=== PATIENT | male | born 1965 | race Caucasian/White ===

== ENCOUNTER 2021-08-24 16:41 | Inpatient (IN) | payer OTHER ==
[2021-08-24 18:53] VITALS: BMI 18.6
[2021-08-24] MEDS ORDERED: MAG HYDROX/AL HYDROX/SIMETH 30 ML UNIT-DOSE CUP PO PRN (21:59)
[2021-08-24] MEDS ORDERED: ONDANSETRON *ODT* 4 MG TABLET SL PRN (21:59)
[2021-08-24] MEDS ORDERED: LOPERAMIDE HCL 2 MG CAPSULE PO PRN (21:59)
[2021-08-24] MEDS ORDERED: MAGNESIUM HYDROX 2400MG/30ML ORAL SUSPENSION 30 ML CUP PO PRN (21:59)
[2021-08-24] MEDS ORDERED: BISMUTH SUBSALICYLATE 524 MG/30 ML PO PRN (21:59)
[2021-08-24] MEDS ORDERED: IBUPROFEN 400 MG TABLET (FP) PO PRN (21:59)
[2021-08-24] MEDS ORDERED: BENZOCAINE/MENTHOL (CHLORASEPTIC ) LOZENGE MM PRN (21:59)
[2021-08-24] MEDS ORDERED: MAGNESIUM CITRATE 300 ML BOTTLE PO PRN (21:59)
[2021-08-24] MEDS ORDERED: ACETAMINOPHEN 325 MG TABLET (FP) PO PRN ×2 (21:59)
[2021-08-24] MEDS ORDERED: DICYCLOMINE HCL 10 MG CAPSULE PO PRN (21:59)
[2021-08-24] MEDS ORDERED: diazePAM 5 MG TABLET PO PRN (22:01)
[2021-08-25] MEDS: diazePAM 5 MG TABLET PO SCH ×5 (02:30→22:55)
[2021-08-25] MEDS: THIAMINE HCL 100 MG TABLET (FP) PO SCH ×2 (02:31→22:55)
[2021-08-25] MEDS ORDERED: methaDONE HCL 10 MG TABLET ONE (09:32)
[2021-08-25] MEDS ORDERED: methaDONE HCL 40 MG DISPERSABLE TABLET ONE (09:33)
[2021-08-25] MEDS ORDERED: methaDONE HCL 10 MG TABLET PO ONE (10:00)
[2021-08-25] MEDS: PRENATAL VITAMINS W/ FOLIC ACID TABLET (FP) PO SCH (10:10)
[2021-08-25] MEDS: amLODIPine BESYLATE 10 MG TABLET (FP) PO SCH (10:11)
[2021-08-25] MEDS: LISINOPRIL 20 MG TABLET PO SCH (10:11)
[2021-08-25] MEDS: ABACAVIR/DOLUTEGRAVIR/LAMIVUDI (TRIUMEQ) TABLET -NF PO SCH (10:13)
[2021-08-25] MEDS: KETOCONAZOLE 2% CREAM - 60GM TUBE TP SCH (10:18)
[2021-08-25] MEDS: NICOTINE POLACRILEX 2 MG GUM BUC PRN (11:58)
[2021-08-25 12:16] LABS: HEMOGLOBIN 9.8 GM/dL (11.7-16.9); MCH 33.7 pg (25.7-33.7); MCHC 33.7 g/dl (32.0-35.9); MEAN CELL VOLUME 100.1 fl (80-96); MEAN PLT VOLUME 9.3 fl (7.5-11.1); PLATELET COUNT 153 10^3/uL (134-434); RDW 18.5 % (11.9-15.9); WHITE BLOOD COUNT 3.6 K/mm3 (4.0-10.0)
[2021-08-25 12:18] LABS: ALBUMIN 2.9 g/dl (3.4-5.0)
[2021-08-25 12:19] LABS: BLOOD UREA NITROGEN 15.6 mg/dL (7-18); CALCIUM 8.5 mg/dL (8.5-10.1)
[2021-08-25 12:22] LABS: CREATININE 1.2 mg/dL (0.55-1.3)
[2021-08-25 12:23] LABS: BILIRUBIN,TOTAL 0.3 mg/dL (0.2-1); TOT PROT 6.4 g/dl (6.4-8.2)
[2021-08-25] MEDS: diazePAM 5 MG TABLET PO ONE (18:02)
[2021-08-25] MEDS: hydrOXYzine PAMOATE 25 MG CAPSULE (FP) PO PRN ×2 (18:02→22:55)
[2021-08-25] MEDS: MELATONIN 5 MG TABLETS PO PRN (22:54)
[2021-08-26] MEDS ORDERED: methaDONE HCL 10 MG TABLET ONE (04:28)
[2021-08-26] MEDS ORDERED: methaDONE HCL 40 MG DISPERSABLE TABLET ONE (04:29)
[2021-08-26] MEDS: diazePAM 5 MG TABLET PO SCH ×3 (05:37→22:11)
[2021-08-26] MEDS ORDERED: methaDONE HCL 10 MG TABLET PO SCH (06:00)
[2021-08-26] MEDS: NICOTINE POLACRILEX 2 MG GUM BUC PRN (06:28)
[2021-08-26] MEDS: PRENATAL VITAMINS W/ FOLIC ACID TABLET (FP) PO SCH (10:14)
[2021-08-26] MEDS: ABACAVIR/DOLUTEGRAVIR/LAMIVUDI (TRIUMEQ) TABLET -NF PO SCH (10:14)
[2021-08-26] MEDS: amLODIPine BESYLATE 10 MG TABLET (FP) PO SCH (10:14)
[2021-08-26] MEDS: LISINOPRIL 20 MG TABLET PO SCH (10:14)
[2021-08-26] MEDS: KETOCONAZOLE 2% CREAM - 60GM TUBE TP SCH (10:15)
[2021-08-26 22:06] LABS: SARS-CoV-2 NAA Not Detected (Not Detected)
[2021-08-26] MEDS: MELATONIN 5 MG TABLETS PO PRN (22:11)
[2021-08-26] MEDS: THIAMINE HCL 100 MG TABLET (FP) PO SCH (22:11)
[2021-08-27] MEDS ORDERED: methaDONE HCL 10 MG TABLET ONE (04:26)
[2021-08-27] MEDS ORDERED: methaDONE HCL 40 MG DISPERSABLE TABLET ONE (04:26)
[2021-08-27] MEDS: diazePAM 5 MG TABLET PO SCH ×2 (06:00→18:21)
[2021-08-27] MEDS: amLODIPine BESYLATE 10 MG TABLET (FP) PO SCH (10:14)
[2021-08-27] MEDS: LISINOPRIL 20 MG TABLET PO SCH (10:14)
[2021-08-27] MEDS: PRENATAL VITAMINS W/ FOLIC ACID TABLET (FP) PO SCH (10:14)
[2021-08-27] MEDS: ABACAVIR/DOLUTEGRAVIR/LAMIVUDI (TRIUMEQ) TABLET -NF PO SCH (10:15)
[2021-08-27] MEDS: KETOCONAZOLE 2% CREAM - 60GM TUBE TP SCH (13:13)
[2021-08-27 13:32] LABS: BASO % 0.8 % (0-2.0); EOS % 2.9 % (0-4.5); HEMATOCRIT 31.2 % (35.4-49); HEMOGLOBIN 10.5 GM/dL (11.7-16.9); LYMPH % 19.6 % (8-40); MCH 33.9 pg (25.7-33.7); MCHC 33.7 g/dl (32.0-35.9); MEAN CELL VOLUME 100.8 fl (80-96); MEAN PLT VOLUME 9.8 fl (7.5-11.1); MONO % 9.1 % (3.8-10.2); NEUT % 67.6 % (42.8-82.8); PLATELET COUNT 166 10^3/uL (134-434); RDW 18.1 % (11.9-15.9); WHITE BLOOD COUNT 5.2 K/mm3 (4.0-10.0)
[2021-08-27 19:08] LABS: SARS-CoV-2 NAA Not Detected (Not Detected)
[2021-08-27] MEDS: THIAMINE HCL 100 MG TABLET (FP) PO SCH (22:27)
[2021-08-27] MEDS: hydrOXYzine PAMOATE 25 MG CAPSULE (FP) PO PRN (22:29)
[2021-08-27] MEDS: METHOCARBAMOL 500 MG TABLET PO PRN (22:29)
[2021-08-28] MEDS ORDERED: methaDONE HCL 10 MG TABLET ONE (04:46)
[2021-08-28] MEDS ORDERED: methaDONE HCL 40 MG DISPERSABLE TABLET ONE (04:47)
[2021-08-28] MEDS: diazePAM 5 MG TABLET PO ONE (05:37)
[2021-08-28] MEDS: PRENATAL VITAMINS W/ FOLIC ACID TABLET (FP) PO SCH (10:14)
[2021-08-28] MEDS: amLODIPine BESYLATE 10 MG TABLET (FP) PO SCH (10:15)
[2021-08-28] MEDS: KETOCONAZOLE 2% CREAM - 60GM TUBE TP SCH (10:15)
[2021-08-28] MEDS: LISINOPRIL 20 MG TABLET PO SCH (10:15)
[2021-08-28] MEDS: METHOCARBAMOL 500 MG TABLET PO PRN ×2 (10:15→22:10)
[2021-08-28] MEDS: hydrOXYzine PAMOATE 25 MG CAPSULE (FP) PO PRN ×2 (10:15→22:09)
[2021-08-28] MEDS: ABACAVIR/DOLUTEGRAVIR/LAMIVUDI (TRIUMEQ) TABLET -NF PO SCH (10:16)
[2021-08-28] MEDS: THIAMINE HCL 100 MG TABLET (FP) PO SCH (22:09)
[2021-08-28] MEDS: MELATONIN 5 MG TABLETS PO PRN (22:10)
[2021-08-29] MEDS ORDERED: methaDONE HCL 40 MG DISPERSABLE TABLET ONE (05:10)
[2021-08-29] MEDS ORDERED: methaDONE HCL 10 MG TABLET ONE (05:10)
[2021-08-29 09:26] VITALS: BP 110/67; PULSE 64; TEMP 97.7
[2021-08-29] MEDS: amLODIPine BESYLATE 10 MG TABLET (FP) PO SCH (10:05)
[2021-08-29] MEDS: LISINOPRIL 20 MG TABLET PO SCH (10:06)
[2021-08-29] MEDS: KETOCONAZOLE 2% CREAM - 60GM TUBE TP SCH (10:06)
[2021-08-29] MEDS: hydrOXYzine PAMOATE 25 MG CAPSULE (FP) PO PRN (10:06)
[2021-08-29] MEDS: PRENATAL VITAMINS W/ FOLIC ACID TABLET (FP) PO SCH (10:06)
[2021-08-29] MEDS: ABACAVIR/DOLUTEGRAVIR/LAMIVUDI (TRIUMEQ) TABLET -NF PO SCH (10:07)
== END 2021-08-29 12:15 | disposition home or self-care (01) | DRG 897 ==
LOC: YASAS 16:41 → Y6N 23:17
PROVIDERS: ADMIT Allergy & Immunology; ATTEND Allergy & Immunology
PROC: HZ2ZZZZ Detoxification Services for Substance Abuse Treatment (ICD-10-PCS; principal; 2021-08-24)
DX: F10.230 Alcohol dependence with withdrawal, uncomplicated (principal); F11.20 Opioid dependence, uncomplicated; Z68.1 Body mass index [BMI] 19.9 or less, adult; F13.230 Sedative, hypnotic or anxiolytic dependence with withdrawal, uncomplicated; F12.20 Cannabis dependence, uncomplicated; F17.210 Nicotine dependence, cigarettes, uncomplicated; F19.24 Other psychoactive substance dependence with psychoactive substance-induced mood disorder; F34.1 Dysthymic disorder; Z21 Asymptomatic human immunodeficiency virus [HIV] infection status; G62.9 Polyneuropathy, unspecified; D64.9 Anemia, unspecified; E29.1 Testicular hypofunction; B18.2 Chronic viral hepatitis C; R63.4 Abnormal weight loss
CPT/HCPCS: 36415; 80053; 85025; 85027; 86780; 87811; C9803-CS; U0003; U0005